=== PATIENT | male | born 1990 | race Caucasian/White ===

== ENCOUNTER → 2023-04-20 | Outpatient (CLI) | payer OTHER ==
[~2023-04-20] MED LIST: LIDOCAINE 1% MDV 20ML VIAL As Ordered ONE
[2023-04-20 09:22] VITALS: BP 139/88; TEMP 97.8; O2SAT 93
== END ==
LOC: M IRPRO 09:04
PROVIDERS: ATTEND Otolaryngology
DX: R22.1 Localized swelling, mass and lump, neck (principal)